=== PATIENT | female | born 1970 | race African-American/Black ===

== ENCOUNTER 2017-03-29 18:59 | Emergency (ER) | payer SELFPAY ==
[~2017-03-29] VITALS: Ht 167.6 cm; Wt 78.0 kg
[~2017-03-29 18:59] MED LIST: CYCL5TAB PO; GLIP5TAB8 OR; HYDR-2768 PO; NAPR550 PO
[2017-03-29 19:02] VITALS: BP 128/83; PULSE 88; RESP 16; TEMP 98.5; O2SAT 100
--- NOTE | 2017-03-29 19:38 | PD ---
HPI Chief Complaint: Abdominal Pain Time Seen by Provider: 19:25 Travel History International Travel<30 days: No Contact w/Intl Traveler<30days: No Traveled to known affect area: No History of Present Illness HPI 46-year-old black female presents to emergency department with a 2 month history of vaginal bleeding and a two-day history of lower pelvic discomfort. Patient is concerned that she may have a retained tampon. She states that she' s had dysfunctional uterine bleeding now for the past 2 months. She uses multiple tampons and maxipads throughout the day. She states that she does feel dizzy at times. She denies any fever or chills. Some nausea but no vomiting. Pain is an 8/10. No exacerbating or alleviating factors. PFSH Past Medical History Narrative Medical Hypertension, morbid obesity Diabetes: Yes Respiratory: Yes (ASTHMA) Tetanus Vaccination: < 5 Years ?: Not Past Surgical History Narrative Surgical Gastric bypass, bowel obstruction Social History Alcohol Use: Yes Tobacco Use: Yes Substance Use: No Allergies-Medications (Allergen,Severity, Reaction): Coded Allergies: No Known Allergies (Verified Adverse Reaction, Unknown, 03/29/17) Reported Meds & Prescriptions Reported Meds & Active Scripts Active Ultram (Tramadol HCl) 50 Mg Tab 50 Mg PO Q6H PRN Doxycycline Hyclate 100 Mg Cap 100 Mg PO BID Flexeril (Cyclobenzaprine HCl) 5 Mg Tab 5-10 Mg PO TID Anaprox Ds (Naproxen Sodium) 550 Mg Tab 550 Mg PO BID Reported Glipizide 5 Mg Tab 5 Mg OR DAILY Hctz (Hydrochlorothiazide) 25 Mg Tab 25 Mg PO DAILY Review of Systems General / Constitutional: No: Fever, Chills Eyes: No: Visual changes HENT: No: Headaches, Vertigo Cardiovascular: Positive: Chest Pain or Discomfort, No: Palpitations, Tachycardia Respiratory: No: Cough, Shortness of Breath Gastrointestinal: Positive: Nausea, Abdominal Pain, No: Vomiting, Diarrhea, Loss of Appetite Genitourinary: Positive: Pelvic Pain, Discharge (Brown), Vaginal Bleeding, No: Dysuria, Hematuria Musculoskeletal: No: Pain Skin: No Rash Neurologic: Positive: Dizziness, Headache, No: Weakness Psychiatric: No: Depression Endocrine: No: Polydipsia Hematologic/Lymphatic: No: Easy Bruising Physical Exam Narrative GENERAL: Well-developed, well-nourished in no apparent distress. Nontoxic appearing. The patient's examined with nurse Suni present. HEAD: Normocephalic, atraumatic. EYES: Pupils equal round and reactive. Extraocular motions intact. No scleral icterus. No injection or drainage. ENT: Nose clear. Throat without erythema, tonsillar hypertrophy or exudate. Uvula midline. Airway patent. NECK: Trachea midline. Supple, nontender, moves head freely. No central bony tenderness or spasm. CARDIOVASCULAR: Regular rate and rhythm without murmurs, gallops, or rubs. RESPIRATORY: Clear to auscultation. Breath sounds equal bilaterally. No wheezes , rales, or rhonchi. GASTROINTESTINAL: Abdomen soft, non-tender, nondistended. No hepato-splenomegaly , or palpable masses. No guarding. EXTREMITIES: No clubbing, cyanosis, or edema. No joint tenderness. BACK: Nontender without deformity. No flank tenderness. NEUROLOGICAL: Awake, alert and oriented x 3 .Cranial nerves grossly intact. Motor and sensory grossly within normal limits. Normal speech. : Normal external genitalia. No evidence of bleeding. Speculum exam reveals a beige vaginal discharge. No vaginal bleeding. Cervix is long and closed. There is no foreign bodies noted. Cultures obtained. Bimanual exam reveals no adnexal tenderness or masses. Patient does have some mildly tender uterus which seems to be somewhat slightly enlarged and 8 cm. Her uterus is tender to palpation. No cervical motion tenderness. No blood in the vault. No active bleeding. Data Data Last Documented VS Vital Signs Date Time Temp Pulse Resp B/P (MAP) Pulse Ox O2 Delivery O2 Flow Rate FiO2 03/29/17 19:02 98.5 88 16 128/83 (98) 100 Room Air Orders Orders Electrocardiogram (03/29/17 19:31) Complete Blood Count With Diff (03/29/17 19:31) Basic Metabolic Panel (Bmp) (03/29/17 19:31) Urinalysis - C+S If Indicated (03/29/17 19:31) Wet Prep Profile (03/29/17 19:31) Gc And Chlamydia Pcr (03/29/17 19:31) Iv Access Insert/Monitor (03/29/17 19:31) Sodium Chlor 0.9% 1000 Ml Inj (Ns 1000 M (03/29/17 19:45) Ed Urine Pregnancytest Poc (03/29/17 19:52) Azithromycin Powd Pack (Zithromax Powd P (03/29/17 20:00) Ceftriaxone Inj (Rocephin Inj) (03/29/17 20:00) Diphenhydramine Inj (Benadryl Inj) (03/29/17 20:30) Haloperidol Inj (Haldol Inj) (03/29/17 20:30) Potassium Chloride (Kcl) (03/29/17 21:00) Ed Discharge Order (03/29/17 21:09) Labs Laboratory Tests Test 03/29/17 19:35 03/29/17 19:50 White Blood Count 6.4 TH/MM3 Red Blood Count 3.53 MIL/MM3 Hemoglobin 8.8 GM/DL Hematocrit 28.2 % Mean Corpuscular Volume 79.7 FL Mean Corpuscular Hemoglobin 24.8 PG Mean Corpuscular Hemoglobin Concent 31.1 % Red Cell Distribution Width 19.7 % Platelet Count 225 TH/MM3 Mean Platelet Volume 9.4 FL Neutrophils (%) (Auto) 65.7 % Lymphocytes (%) (Auto) 23.9 % Monocytes (%) (Auto) 9.2 % Eosinophils (%) (Auto) 0.7 % Basophils (%) (Auto) 0.5 % Neutrophils # (Auto) 4.2 TH/MM3 Lymphocytes # (Auto) 1.5 TH/MM3 Monocytes # (Auto) 0.6 TH/MM3 Eosinophils # (Auto) 0.0 TH/MM3 Basophils # (Auto) 0.0 TH/MM3 CBC Comment AUTO DIFF Blood Urea Nitrogen 12 MG/DL Creatinine 0.87 MG/DL Random Glucose 60 MG/DL Calcium Level 8.3 MG/DL Sodium Level 140 MEQ/L Potassium Level 3.1 MEQ/L Chloride Level 108 MEQ/L Carbon Dioxide Level 23.5 MEQ/L Anion Gap 9 MEQ/L Estimat Glomerular Filtration Rate 85 ML/MIN Urine Color YELLOW Urine Turbidity HAZY Urine pH 6.0 Urine Specific [place] 1.019 Urine Protein TRACE mg/dL Urine Glucose (UA) NEG mg/dL Urine Ketones NEG mg/dL Urine Occult Blood NEG Urine Nitrite NEG Urine Bilirubin NEG Urine Urobilinogen 2.0 MG/DL Urine Leukocyte Esterase TRACE Urine RBC 0-3 /hpf Urine WBC 3-5 /hpf Urine Squamous Epithelial Cells > 8 /hpf Urine Bacteria FEW /hpf Microscopic Urinalysis Comment CULT NOT INDICATED Clue Cells (Wet Prep) NONE SEEN Vaginal Trichomonas (Wet Prep) NONE SEEN Vaginal Yeast (Wet Prep) NONE SEEN MDM Medical Decision Making Medical Screen Exam Complete: Yes Emergency Medical Condition: Yes Medical Record Reviewed: Yes Interpretation(s) EKG: Normal sinus rhythm with ventricular rate of 67. No abnormal ST-T wave changes. Normal intervals. Normal axis. Differential Diagnosis Differential diagnosis: Anemia, dysfunctional uterine bleeding, retained foreign body, toxic shock, UTI, nondescript abdominal pain Narrative Course IV access is obtained. Routine laboratory tests and for analysis. Patient's given a liter bolus of saline. Pelvic exam set up. Patient is given Rocephin 250 IM and Zithromax 1 g by mouth. Patient given 50 mg of Benadryl, Reglan 10 mg, and Haldol 3 mg IV. The patient is reexamined. She has had excellent resolution of her discomfort. The patient is also given 40 mEq of potassium by mouth. She is tolerating by mouth without vomiting. Patient is much improved and stable for discharge. Patient is aware that she has anemia and she had a hemoglobin of 8.8. The patient states that she did have an ultrasound when she was evaluated and held central approximately 2-3 months ago for the same similar symptoms. This is pelvic pain, history of dysfunctional uterine bleeding, anemia Diagnosis Primary Impression: pelvic pain Additional Impressions: History of dysfunctional uterine bleeding Anemia Qualified Codes: D64.9 - Anemia, unspecified Referrals: Fabio Franz MD 3 days Patient Instructions: General Instructions Additional Instructions: Rest. Increase fluids. Ultram for pain. Doxycycline. Follow-up with medical records field technician in the next 2-3 days for recheck. Return to the ER if any problems. Med/Other Pt SpecificInfo: Prescription(s) given Scripts Tramadol (Ultram) 50 Mg Tab 50 MG PO Q6H Y for PAIN, #12 TAB 0 Refills Prov: Meri Gilmore MD 03/29/17 Doxycycline Hyclate (Doxycycline Hyclate) 100 Mg Cap 100 MG PO BID for Infection, #20 CAP 0 Refills Prov: Meri Gilmore MD 03/29/17 Disposition: 01 DISCHARGE HOME Condition: Stable Lisandro Pike Mar 29, 2017 19:37
[2017-03-29] MEDS ORDERED: SODIUM CHLOR 0.9% 1000 ML INJ 1,000 ML IV ONE (19:45)
[2017-03-29] MEDS ORDERED: AZITHROMYCIN PWD FOR SUSP 1 GM PACKET PO ONE (20:00)
[2017-03-29] MEDS ORDERED: cefTRIAXone 250 MG VIAL IM ONE (20:00)
[2017-03-29 20:16] LABS: AUTOMATED NEUTROPHIL # 4.2 TH/MM3 (1.8-7.7); BASOPHIL % 0.5 % (0.0-2.0); EOSINOPHIL % 0.7 % (0.0-4.0); HEMATOCRIT 28.2 % (35.0-46.0); LYMPH % 23.9 % (9.0-44.0); LYMPHOCYTE # 1.5 TH/MM3 (1.0-4.8); MEAN CELL VOLUME 79.7 FL (80.0-100.0); MEAN CORPUSCULAR HEMOGLOBIN 24.8 PG (27.0-34.0); MEAN CORPUSCULAR HGB CONC 31.1 % (32.0-36.0); MONO % 9.2 % (0.0-8.0); NEUT % 65.7 % (16.0-70.0); PLATELET COUNT 225 TH/MM3 (150-450); RED BLOOD COUNT 3.53 MIL/MM3 (4.00-5.30); RED CELL DISTRIBUTION WIDTH 19.7 % (11.6-17.2); WHITE BLOOD COUNT 6.4 TH/MM3 (4.0-11.0)
[2017-03-29 20:17] LABS: BLOOD, URINE NEG (NEG); GLUCOSE,URINE NEG (NEG); KETONE, URINE NEG (NEG); NITRITE,URINE NEG (NEG); URINE COLOR YELLOW (YELLW/STRAW)
[2017-03-29 20:28] LABS: HEMO FLAGS AUTO DIFF
[2017-03-29] MEDS ORDERED: HALOPERIDOL LACTATE 5 MG/ML AMP IV PUSH ONE (20:30)
[2017-03-29] MEDS ORDERED: diphenhydrAMINE HCL 50 MG/ML VIAL IV PUSH ONE (20:30)
[2017-03-29 20:34] LABS: BICARBONATE 23.5 MEQ/L (21.0-32.0); POTASSIUM 3.1 MEQ/L (3.5-5.1)
[2017-03-29 20:36] LABS: RBC, URINE 0-3 /hpf (0-3)
[2017-03-29 20:37] LABS: BACTERIA, URINE FEW /hpf; COMMENT (UR) CULT NOT INDICATED; CULTURE IF INDICATED CULT NOT INDICATED; SQUAMOUS EPITHELIAL CELL URINE > 8 /hpf (0-5)
[2017-03-29] MEDS ORDERED: POTASSIUM CHLORIDE 20 MEQ CONTROLLED RELEASE TAB PO ONE (21:00)
[2017-03-29] MEDS ORDERED: DOXY100C PO (21:08)
[2017-03-29] MEDS ORDERED: TRAM50 PO (21:08)
[2017-03-29 21:14] VITALS: BP 121/67; PULSE 87; RESP 20; O2SAT 100
[2017-03-29 21:16] LABS: PLATELET ESTIMATE SMEAR NORMAL (NORMAL); PLATELET MORPHOLOGY ENLARGED (NORMAL); SCAN/DIFF AUTO DIFF CONFIRMED
[2017-03-29 22:15] LABS: CHLAMYDIA PCR NOT DETECTED (NOT DETECT); NEISSERIA PCR NOT DETECTED (NOT DETECT)
--- NOTE | 2017-03-30 15:19 | EKG ---
Date Performed: 03/29/2017 Time Performed: 19:27:00 PTAGE: 46 years EKG: Sinus rhythm WITH SINUS ARRHYTHMIA NORMAL ECG NO PREVIOUS TRACING DOCTOR: Dilan Orellana Interpretating Date/Time 03/30/2017 15:17:27
== END 2017-03-29 22:59 | disposition home or self-care (01) ==
LOC: NEPE 18:59
DX: R10.2 Pelvic and perineal pain (principal); D64.9 Anemia, unspecified; N93.8 Other specified abnormal uterine and vaginal bleeding; R42 Dizziness and giddiness; R51 Headache; R11.0 Nausea; I49.8 Other specified cardiac arrhythmias; I10 Essential (primary) hypertension; E11.9 Type 2 diabetes mellitus without complications
CPT/HCPCS: 80048; 81001; 84703; 85025; 87210; 87491; 87591; 93005; 96372; 96374; 96375; 99284; J0696; J1200; J1630; J7030

== ENCOUNTER 2017-05-01 15:38 | Emergency (ER) | payer MEDICAID, OTHER ==
[~2017-05-01] VITALS: Ht 167.6 cm; Wt 80.0 kg
[~2017-05-01 15:38] MED LIST changes: +DOXY100C PO; +TRAM50 PO
[2017-05-01 15:41] VITALS: BP 119/58; PULSE 97; RESP 15; TEMP 98.9; O2SAT 100
--- NOTE | 2017-05-01 17:08 | PD ---
HPI Chief Complaint: Certified Orthoptist Problem/Complaint Time Seen by Provider: 17:01 Travel History International Travel<30 days: No Contact w/Intl Traveler<30days: No Traveled to known affect area: No History of Present Illness HPI 46-year-old female with history of gastric bypass several years ago, here for evaluation of low abdominal pain and vaginal discharge that is foul-smelling. Patient reports that she had the symptoms a month ago and was given a prescription. Symptoms have persisted, and it worsened over the last couple of days. She describes the pain is severe, cramping, worse with movement and palpation. She denies fevers or chills. No nausea or vomiting. Reports her last bowel movement was 4 or 5 days ago. No urinary symptoms. She is sexually active with one partner and is not sure if he is active with other partners. PFSH Past Medical History Diabetes: Yes Patient Takes Glucophage: No Diminished Hearing: No Respiratory: Yes (ASTHMA) Tetanus Vaccination: < 5 Years Influenza Vaccination: Yes ?: Not LMP: 04/21/17 : 2 Para: 2 Miscarriage: 0 : 0 Past Surgical History Abdominal Surgery: Yes (gastric bypass, "and another gastric sx") Social History Alcohol Use: Yes (wine occu) Tobacco Use: Yes Substance Use: No Allergies-Medications (Allergen,Severity, Reaction): Coded Allergies: No Known Allergies (Verified Adverse Reaction, Unknown, 05/01/17) Reported Meds & Prescriptions Reported Meds & Active Scripts Active Ultram (Tramadol HCl) 50 Mg Tab 50 Mg PO Q6H PRN Doxycycline Hyclate 100 Mg Cap 100 Mg PO BID Flexeril (Cyclobenzaprine HCl) 5 Mg Tab 5-10 Mg PO TID Anaprox Ds (Naproxen Sodium) 550 Mg Tab 550 Mg PO BID Reported Glipizide 5 Mg Tab 5 Mg OR DAILY Hctz (Hydrochlorothiazide) 25 Mg Tab 25 Mg PO DAILY Review of Systems Except as stated in HPI: all other systems reviewed are Neg Physical Exam Narrative GENERAL: Well-developed, well-nourished, comfortable, no apparent distress. SKIN: Focused skin assessment warm/dry. HEAD: Atraumatic. Normocephalic. EYES: Pupils equal and round. No scleral icterus. No injection or drainage. ENT: No nasal bleeding or discharge. Mucous membranes pink and moist. NECK: Trachea midline. No JVD. CARDIOVASCULAR: Regular rate and rhythm. No murmur appreciated. RESPIRATORY: No accessory muscle use. Clear to auscultation. Breath sounds equal bilaterally. GASTROINTESTINAL: Abdomen soft, nondistended. Mild lower abdominal/suprapubic tenderness without peritoneal signs. Normal bowel sounds. BUSINESS SPECIALIST: Exam performed in the presence of female nurse. Normal external genitalia. Moderate amount of white/foul-smelling vaginal discharge. Mild uterine tenderness. Normal appearing cervix. No CMT. No nasal masses or tenderness. MUSCULOSKELETAL: No obvious deformities. No clubbing. No cyanosis. No edema. NEUROLOGICAL: Awake and alert. No obvious cranial nerve deficits. Motor grossly within normal limits. Normal speech. PSYCHIATRIC: Appropriate mood and affect; insight and judgment normal. Data Data Last Documented VS Vital Signs Date Time Temp Pulse Resp B/P (MAP) Pulse Ox O2 Delivery O2 Flow Rate FiO2 05/01/17 19:15 71 18 103/67 (79) 99 Room Air 05/01/17 15:41 98.9 Orders Orders Complete Blood Count With Diff (05/01/17 17:04) Comprehensive Metabolic Panel (05/01/17 17:04) Lipase (05/01/17 17:04) Prothrombin Time / Inr (Pt) (05/01/17 17:04) Act Partial Throm Time (Ptt) (05/01/17 17:04) Urinalysis - C+S If Indicated (05/01/17 17:04) Ct Abd/Pel W Iv Contrast(Rout) (05/01/17 17:04) Iv Access Insert/Monitor (05/01/17 17:04) Ecg Monitoring (05/01/17 17:04) Oximetry (05/01/17 17:04) Sodium Chloride 0.9% Flush (Ns Flush) (05/01/17 17:15) Ed Urine Pregnancytest Poc (05/01/17 17:04) Gc And Chlamydia Pcr (05/01/17 17:04) Wet Prep Profile (05/01/17 17:04) Ketorolac Inj (Toradol Inj) (05/01/17 17:15) Diatrizoate Liq ( Gastroview Liq) (05/01/17 17:15) Oral Contrast - Adult (05/01/17 17:09) Iohexol 350 Inj (Omnipaque 350 Inj) (05/01/17 19:52) Azithromycin Powd Pack (Zithromax Powd P (05/01/17 20:45) Rocephin 250mg Vial Im X 1 (05/01/17 20:45) Lidocaine 1% Inj (50 Ml) (Xylocaine 1% I (05/01/17 20:45) Metronidazole (Flagyl) (05/01/17 20:45) Labs Laboratory Tests Test 05/01/17 17:46 05/01/17 18:42 White Blood Count 6.3 TH/MM3 Red Blood Count 3.49 MIL/MM3 Hemoglobin 7.8 GM/DL Hematocrit 26.1 % Mean Corpuscular Volume 74.6 FL Mean Corpuscular Hemoglobin 22.3 PG Mean Corpuscular Hemoglobin Concent 29.9 % Red Cell Distribution Width 19.9 % Platelet Count 313 TH/MM3 Mean Platelet Volume 9.0 FL Neutrophils (%) (Auto) 64.6 % Lymphocytes (%) (Auto) 26.3 % Monocytes (%) (Auto) 7.9 % Eosinophils (%) (Auto) 0.7 % Basophils (%) (Auto) 0.5 % Neutrophils # (Auto) 4.0 TH/MM3 Lymphocytes # (Auto) 1.6 TH/MM3 Monocytes # (Auto) 0.5 TH/MM3 Eosinophils # (Auto) 0.0 TH/MM3 Basophils # (Auto) 0.0 TH/MM3 CBC Comment AUTO DIFF Differential Total Cells Counted 100 Neutrophils % (Manual) 65 % Band Neutrophils % 1 % Lymphocytes % 28 % Monocytes % 6 % Neutrophils # (Manual) 4.2 TH/MM3 Differential Comment FINAL DIFF MANUAL Platelet Estimate NORMAL Platelet Morphology Comment NORMAL Ovalocytes 1+ Stomatocytes Acanthocytes OCC Urine Color YELLOW Urine Turbidity HAZY Urine pH 5.5 Urine Specific [place] 1.025 Urine Protein TRACE mg/dL Urine Glucose (UA) NEG mg/dL Urine Ketones NEG mg/dL Urine Occult Blood NEG Urine Nitrite NEG Urine Bilirubin NEG Urine Urobilinogen LESS THAN 2.0 MG/DL Urine Leukocyte Esterase SMALL Urine WBC 1 /hpf Urine Squamous Epithelial Cells 9 /hpf Urine Mucus MANY /lpf Microscopic Urinalysis Comment CULT NOT INDICATED Blood Urea Nitrogen 10 MG/DL Creatinine 0.54 MG/DL Random Glucose 69 MG/DL Total Protein 7.2 GM/DL Albumin 3.5 GM/DL Calcium Level 8.2 MG/DL Alkaline Phosphatase 120 U/L Aspartate Amino Transf (AST/SGOT) 18 U/L Alanine Aminotransferase (ALT/SGPT) 30 U/L Total Bilirubin 0.4 MG/DL Sodium Level 141 MEQ/L Potassium Level 3.8 MEQ/L Chloride Level 110 MEQ/L Carbon Dioxide Level 23.2 MEQ/L Anion Gap 8 MEQ/L Estimat Glomerular Filtration Rate 147 ML/MIN Lipase 87 U/L Clue Cells (Wet Prep) PRESENT Vaginal Trichomonas (Wet Prep) NONE SEEN Vaginal Yeast (Wet Prep) NONE SEEN MDM Medical Decision Making Medical Screen Exam Complete: Yes Emergency Medical Condition: Yes Medical Record Reviewed: Yes Differential Diagnosis BV, Trichomonas, PID, UTI, cystitis, TOA, appendicitis, bowel obstruction, ovarian cyst, torsion, , ectopic Narrative Course Vital signs show heart rate 71, blood pressure 103/67, pulse ox 100% on room air , oral temp of 98.9F. CBC is markable for hemoglobin 7.8, hematocrit 26.1, MCV 74.6. CMP is unremarkable. UA is not suggestive of UTI, shows many mucus. Wet prep is positive for clue cells. CT abdomen pelvis: CONCLUSION: 1. Endometrial thickening. Probable uterine fibroids measuring up to 2.5 cm. 2. No dilated loops of small large bowel. Mild constipation. Patient was made aware of all findings. She reports history of heavy menstrual periods requiring transfusions, last transfusion was about 3 months ago in [place]. She states that she is supposed to be on iron, however she is not taking it. I told her that her heavy menstrual periods are likely secondary to the probable fibroid seen on CT scan. Currently she is not bleeding. She was provided a copy of her CT abdomen pelvis report. Patient will be empirically treated for gonorrhea and chlamydia with Rocephin and azithromycin for likely PID as well as started on doxycycline as well as Flagyl for BV. Patient is stable for discharge home with outpatient follow-up with a primary care physician as well as an DESIGN DRAFTER physician this week. She was advised to also resume taking her iron. She was informed on when to return to the emergency department. She verbalizes understanding and agreement with plan. Diagnosis Primary Impression: PID (acute pelvic inflammatory disease) Additional Impressions: Bacterial vaginosis Anemia Qualified Codes: D64.9 - Anemia, unspecified Referrals: [facility] 3 days [facility] 3 days Additional Instructions: Take medications as prescribed. Follow-up with a primary care physician this week. Follow-up with an DESIGN DRAFTER physician this week. Take iron supplement daily. Return to the emergency department for worsening symptoms or any other concerns. Scripts Doxycycline Hyclate (Doxycycline Hyclate) 100 Mg Cap 100 MG PO BID for Infection, #28 CAP 0 Refills Prov: Vincent Suarez MD 05/01/17 Metronidazole (Flagyl) 500 Mg Tab 500 MG PO BID for Infection for 7 Days, #14 TAB 0 Refills Prov: Vincent Suarez MD 05/01/17 Ferrous Sulfate (Ferrous Sulfate) 325 Mg (65 Mg Iron) Tablet 325 MG PO DAILY for Nutritional Supplement, #30 TAB 0 Refills Prov: Vincent Suarez MD 05/01/17 Disposition: 01 DISCHARGE HOME Condition: Stable Vincent Suarez MD May 01, 2017 17:08
[2017-05-01] MEDS ORDERED: SODIUM CHLORIDE 0.9% FLUSH 10 ML FLUSH IV FLUSH PRN (17:15)
[2017-05-01] MEDS ORDERED: KETOROLAC TROMETHAMINE 30 MG/ML (IVP) VIAL IV PUSH ONE (17:15)
[2017-05-01] MEDS ORDERED: DIATRIZOATE MEGLUM/DIATRIZOATE SOD 9 ML CUP PO ONE (17:15)
[2017-05-01 18:14] LABS: BILIRUBIN, URINE NEG (NEG); BLOOD, URINE NEG (NEG); GLUCOSE,URINE NEG (NEG); KETONE, URINE NEG (NEG); MUCUS URINE MANY /lpf (OCC); NITRITE,URINE NEG (NEG); PH, URINE 5.5 (5.0-8.5); SQUAMOUS EPITHELIAL CELL URINE 9 /hpf (0-5); URINE COLOR YELLOW (YELLW/STRAW); URINE LEUKOCYTE ESTERASE SMALL (NEG)
[2017-05-01 18:27] LABS: BASOPHIL % 0.5 % (0.0-2.0); EOSINOPHIL % 0.7 % (0.0-4.0); HEMATOCRIT 26.1 % (35.0-46.0); HEMOGLOBIN 7.8 GM/DL (11.6-15.3); LYMPH % 26.3 % (9.0-44.0); LYMPHOCYTE # 1.6 TH/MM3 (1.0-4.8); MEAN CELL VOLUME 74.6 FL (80.0-100.0); MEAN CORPUSCULAR HEMOGLOBIN 22.3 PG (27.0-34.0); MONO % 7.9 % (0.0-8.0); MONOCYTE # 0.5 TH/MM3 (0-0.9); NEUT % 64.6 % (16.0-70.0); PLATELET COUNT 313 TH/MM3 (150-450); RED BLOOD COUNT 3.49 MIL/MM3 (4.00-5.30); RED CELL DISTRIBUTION WIDTH 19.9 % (11.6-17.2); WHITE BLOOD COUNT 6.3 TH/MM3 (4.0-11.0)
[2017-05-01 18:28] LABS: MEAN CORPUSCULAR HGB CONC 29.9 % (32.0-36.0)
[2017-05-01 18:31] LABS: ALBUMIN 3.5 GM/DL (3.4-5.0); AST (GOT) 18 U/L (15-37); BICARBONATE 23.2 MEQ/L (21.0-32.0); BLOOD UREA NITROGEN 10 MG/DL (7-18); CALCIUM 8.2 MG/DL (8.5-10.1); CHLORIDE 110 MEQ/L (98-107); CREATININE 0.54 MG/DL (0.50-1.00); GLOMERULAR FILTRATION RATE 147 ML/MIN (>89); GLUCOSE,RANDOM 69 MG/DL (74-106); LIPASE 87 U/L (73-393); SODIUM (NA) 141 MEQ/L (136-145)
[2017-05-01 18:32] LABS: ALT (GPT) 30 U/L (10-53)
[2017-05-01 18:34] LABS: ALKALINE PHOSPHATASE 120 U/L (45-117); TOTAL BILIRUBIN ADULT 0.4 MG/DL (0.2-1.0); TOTAL PROTEIN 7.2 GM/DL (6.4-8.2)
[2017-05-01 19:02] LABS: ACANTHOCYTES OCC (NORMAL); BANDS 1 % (0-6); LYMPHOCYTES 28 % (9-44); MONOCYTES 6 % (0-8); NEUTROPHIL # MANUAL DIFF 4.2 TH/MM3 (1.8-7.7); OVALOCYTES 1+ (NORMAL); POLYS (SEG NEUTROPHILS) 65 % (16-70)
[2017-05-01 19:15] VITALS: BP 103/67; PULSE 71; RESP 18; O2SAT 100; O2SAT 99
[2017-05-01] MEDS ORDERED: IOHEXOL 350 MG/ML 10 ML VIAL (for RAD DIAG) IVCONTRAST ONE (19:52)
--- NOTE | 2017-05-01 20:17 | RADRPT ---
EXAM DATE/TIME: 05/01/2017 19:49 [place] COMPARISON: No previous studies available for comparison. INDICATIONS : Lower abdominal pain with vaginal discharge. IV CONTRAST: 100 cc Omnipaque 350 (iohexol) IV ORAL CONTRAST: Prescribed oral contrast ingested. RADIATION DOSE: 10.30 CTDIvol (mGy) MEDICAL HISTORY : Cardiovascular disease. Diabetes mellitus type 2. SURGICAL HISTORY : Gastric bypass. ENCOUNTER: Initial ACUITY: 1 week PAIN SCALE: 8/10 LOCATION: lower quadrant abdomen TECHNIQUE: Volumetric scanning of the abdomen and pelvis was performed. Using automated exposure control and ad justment of the mA and/or kV according to patient size, radiation dose was kept as low as reasonably achievable to obtain optimal diagnostic quality images. DICOM format image data is available electro nically for review and comparison. FINDINGS: LOWER LUNGS: The visualized lower lungs are clear. LIVER: Homogeneous density without lesion. There is no dilation of the biliary tree. No calcified gallston es. SPLEEN: Normal size without lesion. PANCREAS: Within normal limits. KIDNEYS: Normal in size and shape. There is no mass, stone or hydronephrosis. ADRENAL GLANDS: Within normal limits. VASCULAR: There is no aortic aneurysm. BOWEL/MESENTERY: Anastomosis suture about the stomach from prior gastric bypass. Oral contrast passes one half way th rough the small bowel. No dilated loops of small or large bowel. Mild amount of stool throughout th e colon. No evidence of free fluid in the pelvis. ABDOMINAL WALL: Within normal limits. RETROPERITONEUM: There is no lymphadenopathy. BLADDER: No wall thickening or mass. REPRODUCTIVE: The uterus is anteverted. Endometrial stripe is prominent measuring up to 1.8 cm. There is 2 round enhancing areas in the myometrium of the lower uterine segment measuring up to 2.5 cm, suggestive of fibroids. No adnexal masses seen. INGUINAL: There is no lymphadenopathy or hernia. MUSCULOSKELETAL: No significant degenerative changes. CONCLUSION: 1. Endometrial thickening. Probable uterine fibroids measuring up to 2.5 cm. 2. No dilated loops of small large bowel. Mild constipation. Charly Johnston MD on May 01, 2017 at 20:11 Board Certified Radiologist. This report was verified electronically.
[2017-05-01] MEDS ORDERED: FERR325T18 PO (20:37)
[2017-05-01] MEDS ORDERED: DOXY100C PO (20:37)
[2017-05-01] MEDS ORDERED: METR-1 PO (20:37)
[2017-05-01] MEDS ORDERED: LIDOCAINE HCL 1% 50 ML VIAL IM ONE (20:45)
[2017-05-01] MEDS ORDERED: AZITHROMYCIN PWD FOR SUSP 1 GM PACKET PO ONE (20:45)
[2017-05-01] MEDS ORDERED: cefTRIAXone 250 MG VIAL IM ONE (20:45)
[2017-05-01] MEDS ORDERED: metroNIDAZOLE 500 MG TAB PO ONE (20:45)
== END 2017-05-01 21:36 | disposition home or self-care (01) ==
LOC: NEPD 15:38
DX: N73.9 Female pelvic inflammatory disease, unspecified (principal); B96.89 Other specified bacterial agents as the cause of diseases classified elsewhere; N76.0 Acute vaginitis; D64.9 Anemia, unspecified; E11.9 Type 2 diabetes mellitus without complications; J45.909 Unspecified asthma, uncomplicated; Z72.0 Tobacco use
CPT/HCPCS: 74177; 80053; 81001; 83690; 84703; 85007; 85027; 87210; 87491; 87591; 96372; 96374; 99285; J0696; J1885; Q9963; Q9967